=== PATIENT | male | born 1985 | race Caucasian/White ===

== ENCOUNTER → 2024-04-01 11:46 | Outpatient (REF) | payer BC, SELFPAY | LOC: RAD 11:46 | PROVIDERS: ATTENDING PHYSICIAN Physician Assistant | DX: M25.571 Pain in right ankle and joints of right foot (principal) | CPT/HCPCS: 73610; 73630 ==

== ENCOUNTER → 2024-09-11 17:08 | Outpatient (REF) | payer BC, SELFPAY | LOC: RAD 17:08 | PROVIDERS: ATTENDING PHYSICIAN Physician Assistant | DX: R05.1 Acute cough (principal) | CPT/HCPCS: 71046 ==